=== PATIENT | female | born 1975 | race Caucasian/White ===

== ENCOUNTER 2017-10-12 23:29 | Emergency (ER) | payer MEDICAID ==
[~2017-10-12] VITALS: Ht 157.5 cm; Wt 100.0 kg
[2017-10-13] MEDS ORDERED: famotidine 10mg tablet PO ONE (00:50)
[2017-10-13] MEDS ORDERED: epiNEPHrine 1 mg/ml inj SQ PRN (00:50)
[2017-10-13] MEDS ORDERED: diphenhydrAMINE 25mg capsule PO ONE (00:50)
[2017-10-13] MEDS ORDERED: dexamethasone 4mg tablet PO ONE (00:50)
[2017-10-13] MEDS ORDERED: PRED20TA PO (00:53)
[2017-10-13] MEDS ORDERED: EPIN0.3P8 IM (00:53)
[2017-10-13] MEDS ORDERED: famotidine 20mg tablet PO STA (01:00)
[2017-10-13 01:07] VITALS: BP 134/82
== END 2017-10-13 01:21 | disposition home or self-care (01) ==
LOC: ER 23:30
DX: L50.0 Allergic urticaria (principal); Z91.040 Latex allergy status; Z79.899 Other long term (current) drug therapy
CPT/HCPCS: 96372; 99284; J0171; J8540; Q0163

== ENCOUNTER 2017-10-15 14:06 | Emergency (ER) | payer MEDICAID ==
[~2017-10-15] VITALS: Ht 157.5 cm; Wt 100.9 kg
[~2017-10-15 14:06] MED LIST: EPIN0.3P8 IM; PRED20TA PO
[2017-10-15 14:12] VITALS: BP 144/86
[2017-10-15] MEDS ORDERED: PRED10TA PO (14:55)
[2017-10-15] MEDS ORDERED: epiNEPHrine 1 mg/ml inj SQ ONE (15:00)
== END 2017-10-15 16:04 | disposition home or self-care (01) ==
LOC: ER 14:06
DX: T78.40XD Allergy, unspecified, subsequent encounter (principal); I10 Essential (primary) hypertension; Z91.040 Latex allergy status; X58.XXXD Exposure to other specified factors, subsequent encounter
CPT/HCPCS: 96372; 99283; J0171